=== PATIENT | female | born 1990 | race Caucasian/White ===

== ENCOUNTER → 2017-04-18 | Outpatient (CLI) | payer SELFPAY | LOC: RAD 13:43 | PROVIDERS: ATTEND Obstetrics & Gynecology | DX: Z36 Encounter for antenatal screening of mother (principal) ==

== ENCOUNTER 2017-11-04 10:42 | Observation (INO) | payer OTHER ==
[2017-11-04] MEDS ORDERED: ZOFRAN INJ 4 MG VIAL IVP PRN ×2 (11:09→17:16)
[2017-11-04 11:42] LABS: BILIRUBIN,URINE NEGATIVE (NEGATIVE); BLOOD/HEMOGLOBIN,URINE NEGATIVE (NEGATIVE); GLUCOSE, URINE NEGATIVE (NEGATIVE); KETONES,URINE NEGATIVE (NEGATIVE); LEUKOCYTE ESTERASE ,URINE NEGATIVE (NEGATIVE); NITRITES,URINE NEGATIVE (NEGATIVE); PROTEIN,URINE 2+ (NEGATIVE); UROBILINOGEN,URINE NORMAL (NORMAL)
[2017-11-04 11:42] LABS: BASOPHILS # (AUTO) 0.1 X10^3/uL (0.0-0.1); EOSINOPHILS # (AUTO) 0.1 x10^3/uL (0.0-0.2); EOSINOPHILS % (AUTO) 0.8 % (0.9-2.9); HEMOGLOBIN 13.9 g/dL (12.0-16.0); LYMPHOCYTES # (AUTO) 2.4 X10^3/uL (1.3-2.9); LYMPHOCYTES % (AUTO) 30.6 % (21.0-51.0); MEAN CORPUSCULAR HEMOGLOBIN 26.1 pg (27.0-34.0); MEAN CORPUSCULAR HGB CONC 33.8 g/dL (33.0-35.0); MEAN CORPUSCULAR VOLUME 77.2 fL (80.0-100.0); MEAN PLATELET VOLUME 10.4 fL (7.4-11.0); MONOCYTES # (AUTO) 0.7 x10^3/uL (0.3-0.8); MONOCYTES % (AUTO) 9.1 % (0.0-13.0); NEUTROPHILS # (AUTO) 4.7 x10^3/uL (2.2-4.8); NEUTROPHILS % (AUTO) 58.5 % (42.0-75.0); PLATELET COUNT 289 X10^3/uL (150.0-450.0); RED BLOOD COUNT 5.31 X10^6/uL (3.5-5.4); RED CELL DISTRIBUTION WIDTH 17.6 % (11.6-16.5)
--- NOTE | 2017-11-04 11:51 | RAD ---
Indication: Preop for appendix surgery. Exam: Portable chest Comparison: None. Findings: The heart is normal. The pulmonary vessels are normal. No consolidation or effusion is seen . The bones are intact. Impression: No acute cardiopulmonary abnormality. Reported By:
[2017-11-04 11:55] LABS: APPEARANCE,URINE CLEAR (CLEAR); COLOR,URINE YELLOW (YELLOW)
[2017-11-04 11:56] LABS: BACTERIA,URINE NEGATIVE /HPF (NEGATIVE); RBC,URINE 0-1 /HPF (NEGATIVE); SQUAMOUS EPITHELIAL CELL,UR RARE /HPF (NEGATIVE)
[2017-11-04 12:00] LABS: GIANT PLATELET RARE; PLATELET MORPHOLOGY COMMENT NORMAL (NORMAL)
[2017-11-04 12:07] LABS: ALANINE AMINOTRANSFERASE 28 Units/L (12-78); ALBUMIN 3.3 g/dL (3.4-5.0); ALKALINE PHOSPHATASE 96 Units/L (46-116); ASPARTATE AMINO TRANSFERASE 15 Units/L (15-37); BLOOD UREA NITROGEN 12 mg/dL (7-18); CALCIUM 8.6 mg/dL (8.5-10.1); CARBON DIOXIDE 28.7 mmol/L (21-32); CHLORIDE 103 mmol/L (98-107); COR CA(FOR HYPOALB) 9.2 mg/dL (8.5-10.1); CREATININE 0.74 mg/dL (0.55-1.02); SODIUM 138 mmol/L (136-145); TOTAL PROTEIN 7.3 g/dL (6.4-8.2); eGFR BLACK RACES > 60 (>60); eGFR NON BLACK RACES > 60 (>60)
[2017-11-04 12:22] LABS: SERUM PREGNANCY TEST, QUAL NEGATIVE <10 mIU/mL
[2017-11-04] MEDS ORDERED: ANCEF VIAL 1 GM ONE (12:38)
[2017-11-04] MEDS ORDERED: LR 1000 ML IV 1,000 ML IV ONE (12:38)
[2017-11-04] MEDS ORDERED: ANCEF 1 GM IV PREMIX* 2 GM/100 ML BAG IV ONE (12:39)
[2017-11-04 12:45] VITALS: BMI 34.7
[2017-11-04] MEDS: NS 1000 ML 1,000 ML IV SCH ×2 (13:00→23:15)
[2017-11-04] MEDS: PEPCID 20 MG IV PREMIX* 20 MG/50 ML BAG IV SCH ×2 (13:01→20:52)
[2017-11-04] MEDS: PROTONIX INJ 40 MG VIAL IVP SCH ×2 (13:01→20:52)
[2017-11-04] MEDS ORDERED: FENTANYL INJ 250 mcg ONE (15:32)
[2017-11-04] MEDS ORDERED: DECADRON INJ ONE (15:33)
[2017-11-04] MEDS ORDERED: XYLOCAINE 2 % (PLAIN) ONE (15:36)
[2017-11-04] MEDS ORDERED: ROBINUL ONE (15:36)
[2017-11-04] MEDS ORDERED: ZOFRAN INJ 4 MG VIAL ONE (15:36)
[2017-11-04] MEDS ORDERED: REGLAN INJ 10 MG VIAL ONE (15:36)
[2017-11-04] MEDS ORDERED: SUPRANE IN ONE (15:36)
[2017-11-04] MEDS ORDERED: NORCURON INJ 10 MG VIAL ONE (15:36)
[2017-11-04] MEDS ORDERED: LTA KIT LIDOCAINE 4% ONE (15:36)
[2017-11-04] MEDS ORDERED: VERSED ONE (15:36)
[2017-11-04] MEDS ORDERED: QUELICIN (OR ANECTINE) ONE (15:36)
[2017-11-04] MEDS ORDERED: NEOSTIGMINE INJ ONE (15:36)
[2017-11-04] MEDS ORDERED: DIPRIVAN VIAL ONE (15:36)
[2017-11-04] MEDS ORDERED: XYLOCAINE 1% and EPINEPHRINE 1:100,000 ONE (16:06)
[2017-11-04] MEDS ORDERED: MARCAINE 0.25% INJ ONE (16:06)
[2017-11-04] MEDS ORDERED: NS IRRIGATION 3000 ML 3,000 ML IR ONE (16:42)
[2017-11-04] MEDS ORDERED: REGLAN INJ 10 MG VIAL IVP PRN (17:16)
[2017-11-04] MEDS ORDERED: PHENERGAN INJ 25 MG IVP PRN (17:16)
[2017-11-04] MEDS ORDERED: BENADRYL INJ 50 MG VIAL IVP PRN (17:16)
[2017-11-04] MEDS ORDERED: DILAUDID INJ IVP PRN (17:16)
--- NOTE | 2017-11-04 17:27 | OR.GENERIC ---
Post-Op Note Generic - Post-Op Note Operative Report: Date of Operation: November 04, 2017 Pre-Operative Diagnosis: Acute appendicitis. Post-Operative Diagnosis: Acute appendicitis. Procedure: Laparoscopic appendectomy. Surgeon: Angel Aldana MD. Technical Specialist: Sheldon Barrett CRNA. Specimen: Appendix. Estimated blood loss: Minimal. Complications: None. Summary: The patient is a 26 year old female who presented with abdominal pain. A CT of the abdomen and pelvis demonstrated appendicitis. The patient was offered appendectomy. The risk and benefits of the procedure including difficulty with anesthesia, bleeding, infection, conversion to open procedure, hernia formation , DVT, as well as PE were discussed with the patient. The patient understood these risks and requested the procedure. On November 04, 2017, the patient was brought to the operative theatre. A time out was performed verifying the patient and procedure. The patient received Ancef for pre-operative antibiosis. After satisfactory induction of general endotracheal anesthesia, the abdomen was prepped with Chloraprep and draped in the usual sterile fashion. The skin and subcutaneous tissue inferior to the umbilicus was anesthetized using local anesthetic. The skin was incised sharply. A 12 mm trocar was placed though the incision and into the peritoneal cavity using the Optiview technique. Carbon dioxide was infiltrated through this trocar to obtain a pneumoperitoneum of 15 mm Hg. A camera was placed through this trocar and swept in all directions. No injury was seen from entering the peritoneal cavity. A site was selected in the right upper quadrant for our 2nd trocar. The skin and fascia was anesthetized using local anesthetic. The skin was incised sharply. A 5 mm trocar was placed into the peritoneal cavity under direct visualization. An additional 5 mm trocar was placed in the left lower quadrant in a similar fashion. The appendix was elevated. Upon manipulation, the appendix was firm throughout. The appendix was freed using sharp and blunt dissection. The appendix was elevated and a window made in the mesoappendix. The appendix was divided at the cecum using a AMY stapler with a tissue load. The mesoappendix was divided using bipolar cautery. The appendix was placed in an endobag and removed through the umbilical trocar site. The staple line was irrigated and no bleeding noted. All irrigation fluid was removed. The 5 mm trocars were removed under direct visualization and no bleeding seen. The umbilical trocar was removed and insufflation evacuated. The fascia at the umbilicus was re-approximated using a 0-Vicryl placed in a [id number] configuration. The skin edges at all incisions were re-approximated using inverted, interrupted 4-0 Monocryl sutures. Mastisol and Steri-strips were placed. Sterile dressings were placed. The patient was awakened and taken to the recovery room in stable condition. There were no complications. All counts were correct.
[2017-11-04] MEDS ORDERED: PERCOCET TAB 5/325 MG PO PRN (17:28)
[2017-11-04] MEDS: DEMEROL INJ IVP PRN (19:37)
[2017-11-05] MEDS: NS 1000 ML 1,000 ML IV SCH (03:55)
[2017-11-05 06:11] LABS: BASOPHILS % (AUTO) 0.2 % (0.2-1.0); HEMATOCRIT 39.8 % (36.0-47.0); HEMOGLOBIN 13.4 g/dL (12.0-16.0); LYMPHOCYTES # (AUTO) 0.8 X10^3/uL (1.3-2.9); LYMPHOCYTES % (AUTO) 9.5 % (21.0-51.0); MEAN CORPUSCULAR HEMOGLOBIN 26.3 pg (27.0-34.0); MEAN CORPUSCULAR HGB CONC 33.6 g/dL (33.0-35.0); MEAN CORPUSCULAR VOLUME 78.1 fL (80.0-100.0); MEAN PLATELET VOLUME 10.4 fL (7.4-11.0); MONOCYTES # (AUTO) 0.3 x10^3/uL (0.3-0.8); MONOCYTES % (AUTO) 3.8 % (0.0-13.0); NEUTROPHILS # (AUTO) 6.9 x10^3/uL (2.2-4.8); NEUTROPHILS % (AUTO) 86.5 % (42.0-75.0); PLATELET COUNT 293 X10^3/uL (150.0-450.0); RED CELL DISTRIBUTION WIDTH 18.1 % (11.6-16.5); WHITE BLOOD COUNT 7.9 X10^3/uL (3.6-10.0)
[2017-11-05 06:25] LABS: ALANINE AMINOTRANSFERASE 21 Units/L (12-78); ALBUMIN 2.8 g/dL (3.4-5.0); ALKALINE PHOSPHATASE 86 Units/L (46-116); ASPARTATE AMINO TRANSFERASE 16 Units/L (15-37); BLOOD UREA NITROGEN 6 mg/dL (7-18); CALCIUM 8.7 mg/dL (8.5-10.1); CARBON DIOXIDE 24.9 mmol/L (21-32); CHLORIDE 106 mmol/L (98-107); COR CA(FOR HYPOALB) 9.7 mg/dL (8.5-10.1); COR NA(FOR HYPERGLY) 140 mmol/L (136-145); CREATININE 0.71 mg/dL (0.55-1.02); SODIUM 140 mmol/L (136-145); eGFR BLACK RACES > 60 (>60); eGFR NON BLACK RACES > 60 (>60)
[2017-11-05] MEDS: DEMEROL INJ IVP PRN (06:25)
[2017-11-05] MEDS: PEPCID 20 MG IV PREMIX* 20 MG/50 ML BAG IV SCH (09:50)
[2017-11-05] MEDS: PROTONIX INJ 40 MG VIAL IVP SCH (09:50)
--- NOTE | 2017-11-05 11:21 | DR.UPDATE ---
H&P Update History and Physical Update: History and Physical reviewed and patient examined. Changes noted: YES Yes with the following: WAS SEEN IN THE OFFICE ON 10/28/17. SHE WAS SCHEDULED FOR AN OUTPATIENT ABD/PELVIS CT WITH CONTRAST TODAY. CT WAS OBTAINED AND REPORTED ENLARGED APPENDIX WITH RIGHT LOWER QUADRANT REACTIVE LYMPHADENOPATHY. FINDINGS ARE SUGGESTIVE OF APPENDICITIS. WE ADMITTED PATIENT FOR A SURGICAL CONSULT WITH FOR REMOVAL OF GALLBLADDER. PATIENT IS MEDICALLY CLEAR FOR SURGERY. WE WILL FOLLOW UP WITH AM LABS AND CHEST XRAY AND CONTINUE TO MONITOR.
[2017-11-05 12:17] VITALS: BP 98/54
== END 2017-11-05 01:10 | disposition home or self-care (01) ==
LOC: MED/SURG 10:42
PROVIDERS: ADMIT Internal Medicine; ATTEND Internal Medicine
PROC: 0DTJ4ZZ Resection of Appendix, Percutaneous Endoscopic Approach (ICD-10-PCS; principal; 2017-11-04 13:00)
DX: K35.89 Other acute appendicitis (principal); R10.84 Generalized abdominal pain; R53.83 Other fatigue
CPT/HCPCS: 36415; 71045; 80053; 81001; 84703; 85025; A4216; A4222; C9113; S0020; S0028; G0378; J0330; J0690; J1100; J2001; J2175; J2250; J2405; J2710; J2765; J3010; J3490; J7120

== ENCOUNTER → 2017-11-04 | Outpatient (CLI) | payer OTHER ==
--- NOTE | 2017-11-04 10:03 | CT ---
CT OF THE ABDOMEN AND PELVIS WITH CONTRAST HISTORY: Unspecified abdominal pain. Comparison: None Technique: Multiple axial images of the abdomen and pelvis were obtained from the lung bases to the pubic symphy sis follow the administration of IV contrast as well as oral contrast. Dose reduction techniques inc luding Automated Exposure Control (AEC) and adjustment of mA and kV were utlized. Findings: The heart is normal in size. There is no pericardial effusion. Lung bases are clear without focal con solidation, pleural effusion or pneumothorax. Liver and spleen are normal in size, enhancement characteristics and contour. No focal lesions. The p ortal vein is patent. No ductal dilitation. Gallbladder is present. No calcified gallstones or gallbl adder wall thickening. The pancreas is unremarkable. Adrenal glands are normal. Kidneys enhance symme trically without hydronephrosis or nephrolithiasis. There is fatty infiltration of the wall of the descending and sigmoid colon. The appendix measures 1. 1 cm as seen on series 4, image 61 and series 6, image 21. There is some shotty right lower quadrant mesenteric lymph nodes No abnormal appearing mesenteric or retroperitoneal lymph nodes. No free fluid or fluid collections. The bladder is normal in appearance. Uterus appears to be present. No free fluid or abnormal pelvic l ymph nodes. No aggressive osseous lesions. IMPRESSION: 1. Enlarged appendix with right lower quadrant reactive lymphadenopathy. Findings are suggestive of appendicitis. 2. Mild fatty infiltration of the descending and rectosigmoid colon wall. Correlate with any evidence of chronic bowel inflammation including inflammatory bowel disease. Reported By:
== END | disposition home or self-care (01) ==
LOC: RAD 08:35
PROVIDERS: ATTEND Internal Medicine
DX: R10.84 Generalized abdominal pain (principal); K38.8 Other specified diseases of appendix
CPT/HCPCS: 74177; A4222